=== PATIENT | male | born 1990 | race Caucasian/White ===

== ENCOUNTER 2021-08-28 12:20 | Emergency (ER) | payer OTHER ==
[~2021-08-28] VITALS: Ht 172.7 cm; Wt 75.7 kg
--- NOTE | 2021-08-28 12:25 | NUR ---
physician at bedside, exam in progress.
[2021-08-28] MEDS ORDERED: ACETAMINOPHEN 325 MG TABLET ONE (12:35)
[2021-08-28] MEDS ORDERED: [UNRECOGNIZED DRUG - OTHER] (12:39)
[2021-08-28] MEDS ORDERED: ACETAMINOPHEN 325 MG TABLET PO ONE (12:45)
--- NOTE | 2021-08-28 13:03 | NUR ---
X-ray in progress.
[2021-08-28] MEDS ORDERED: IBUP-1955 PO (14:00)
--- NOTE | 2021-08-28 14:00 | NUR ---
right knee ellyn wrapp as order patient instructed on crutches used. Patient left room using crutches, [id number]. vitals of HR of 68 142/82 [id number] no c/of pain patient escorted out by security and private guard.
== END 2021-08-28 14:05 | disposition home or self-care (01) ==
LOC: ER 12:22
DX: S83.91XA Sprain of unspecified site of right knee, initial encounter (principal); S80.01XA Contusion of right knee, initial encounter; W21.07XA Struck by softball, initial encounter; Y93.64 Activity, baseball; Y92.320 Baseball field as the place of occurrence of the external cause; Y99.8 Other external cause status; E11.9 Type 2 diabetes mellitus without complications; Z96.41 Presence of insulin pump (external) (internal); Z79.4 Long term (current) use of insulin
CPT/HCPCS: 73590; A4663